=== PATIENT | male | born 1970 | race African-American/Black ===

== ENCOUNTER 2017-04-10 10:43 | Emergency (ER) | payer MEDICAID ==
[~2017-04-10] VITALS: Ht 170.2 cm; Wt 77.1 kg
[2017-04-10] MEDS ORDERED: D5W/SOD CHLO 0.9% 1,000 ML IV ONE (11:15)
[2017-04-10] MEDS ORDERED: QUEtiapine FUMARATE 100 MG TAB PO ONE (11:30)
[2017-04-10 11:33] LABS: Basophils # (auto) 0 uL; Basophils % (auto) 0.1 % (0.0-2.0); CONDITION Y; Eosinophils # (auto) 0.1 uL; Eosinophils % (auto) 1.3 % (0.0-7.0); Hematocrit 39.9 % (41.0-53.0); Lymphocytes # (auto) 1.3 uL; Lymphocytes % (auto) 20.9 % (10.0-50.0); Mean Corpuscular Hemoglobin 27.6 pg (28.0-32.0); Mean Corpuscular Hgb Conc. 32.5 g/dL (32.0-36.0); Mean Corpuscular Volume 84.9 fL (80.0-100.0); Mean Platelet Volume 8.6 fL (7.4-10.4); Monocytes # (auto) 0.3 uL; Monocytes % (auto) 4.9 % (0.0-12.0); Neutrophils # (auto) 4.6 uL; Neutrophils % (auto) 72.8 % (37.0-80.0); Platelet Count (auto) 314 10^3/uL (140-450); Red Cell Distribution Width 15.6 % (11.6-16.0); White Blood Cell 6.4 10^3/uL (4.4-10.8)
[2017-04-10 11:55] LABS: Albumin 3.4 g/dL (3.4-5.0); BUN/Creatinine Ratio 13.2; Bilirubin, Total 0.4 mg/dL (0.2-1.0); Calcium 8.9 mg/dL (8.5-10.1); Potassium 3.1 mmol/L (3.5-5.1); Total Protein 7.4 g/dL (6.4-8.2)
[2017-04-10] MEDS ORDERED: POTASSIUM CHL 10% (20 MEQ/15ML) ORAL SOLN PO ONE (12:30)
[2017-04-10] MEDS ORDERED: QUEtiapine FUMARATE 100 MG TAB PO SCH (22:00)
[2017-04-11 21:53] VITALS: BP 117/75
== END 2017-04-11 21:56 | disposition home or self-care (01) ==
LOC: EDBD 10:43 → ER 10:48
DX: F32.9 Major depressive disorder, single episode, unspecified (principal); E87.6 Hypokalemia; I63.9 Cerebral infarction, unspecified; F17.210 Nicotine dependence, cigarettes, uncomplicated; F15.10 Other stimulant abuse, uncomplicated
CPT/HCPCS: 36415; 80053; 80307; 80320; 85025; 96360; 96361; 99285; J7030; J7042

== ENCOUNTER 2017-04-12 08:30 | Emergency (ER) | payer MEDICAID ==
[~2017-04-12] VITALS: Ht 175.3 cm; Wt 99.8 kg
[2017-04-12 08:56] VITALS: BP 168/120
[2017-04-12] MEDS ORDERED: cloNIDine HCL 0.1 MG TAB PO ONE (09:00)
== END 2017-04-12 10:39 | disposition home or self-care (01) ==
LOC: ER 08:30
DX: F41.9 Anxiety disorder, unspecified (principal); R45.850 Homicidal ideations; F32.9 Major depressive disorder, single episode, unspecified; F17.210 Nicotine dependence, cigarettes, uncomplicated; F15.10 Other stimulant abuse, uncomplicated

== ENCOUNTER 2017-08-19 17:00 | Emergency (ER) | payer MEDICAID ==
[~2017-08-19] VITALS: Ht 180.3 cm; Wt 72.6 kg
[2017-08-20 01:11] LABS: Basophils # (auto) 0.1 uL; Basophils % (auto) 1.1 % (0.0-2.0); Eosinophils # (auto) 0.2 uL; Eosinophils % (auto) 1.9 % (0.0-7.0); Hematocrit 40.2 % (41.0-53.0); Hemoglobin 13.2 g/dL (13.5-17.5); Lymphocytes # (auto) 2.7 uL; Lymphocytes % (auto) 33.3 % (10.0-50.0); Mean Corpuscular Hemoglobin 28.5 pg (28.0-32.0); Mean Corpuscular Hgb Conc. 32.8 g/dL (32.0-36.0); Mean Corpuscular Volume 86.8 fL (80.0-100.0); Mean Platelet Volume 7.9 fL (6.9-10.8); Monocytes # (auto) 0.5 uL; Neutrophils # (auto) 4.6 uL; Neutrophils % (auto) 57.7 % (37.0-80.0); Nucleated Red Blood Cells % 0.1 %; Platelet Count (auto) 383 10^3/uL (140-450); Red Cell Distribution Width 15.7 % (11.8-14.3)
[2017-08-20 01:22] LABS: Albumin 3.6 g/dL (3.4-5.0); BUN/Creatinine Ratio 20.7; Calcium 8.3 mg/dL (8.5-10.1)
[2017-08-20 01:25] LABS: Bilirubin, Total 0.7 mg/dL (0.2-1.0); Total Protein 7.3 g/dL (6.4-8.2)
[2017-08-20 01:55] LABS: Potassium 2.7 mmol/L (3.5-5.1)
[2017-08-20] MEDS ORDERED: POTASSIUM CHL 20 Meq TABLET PO ONE (02:30)
[2017-08-20 02:53] VITALS: BP 120/67
== END 2017-08-20 02:54 | disposition home or self-care (01) ==
LOC: EDSEX 17:00 → EDBD 17:00 → ER 17:00
DX: F41.9 Anxiety disorder, unspecified (principal); F17.210 Nicotine dependence, cigarettes, uncomplicated; E87.6 Hypokalemia; F32.9 Major depressive disorder, single episode, unspecified; Z86.73 Personal history of transient ischemic attack (TIA), and cerebral infarction without residual deficits; Z59.0 Homelessness
CPT/HCPCS: 36415; 71010; 80053; 85025